=== PATIENT | male | born 2000 | race Caucasian/White ===

== ENCOUNTER 2020-01-31 23:53 | Emergency (ER) | payer MEDICAID, OTHER ==
[~2020-01-31] VITALS: Ht 180.3 cm; Wt 59.1 kg
[2020-02-01] MEDS ORDERED: PRED20TA PO (00:11)
[2020-02-01] MEDS ORDERED: HYDR28CR14 TOP (00:11)
[2020-02-01 00:27] VITALS: BP 147/74
== END 2020-02-01 00:28 | disposition home or self-care (01) ==
LOC: ER 23:53
DX: R21 Rash and other nonspecific skin eruption (principal); F12.90 Cannabis use, unspecified, uncomplicated; Z72.89 Other problems related to lifestyle; Z79.899 Other long term (current) drug therapy
CPT/HCPCS: 99283